=== PATIENT | female | born 1995 | race Caucasian/White ===

== ENCOUNTER 2016-07-26 17:34 | Emergency (ER) | payer BC ==
[2016-07-26 18:59] VITALS: BP 123/71
--- NOTE | 2016-07-26 19:23 | UC ---
Complaint Female HPI - HPI Summary HPI Summary: The patient comes in today for: 1. Right eye "goopy and painful": Onset: Today. Palliative/provocative: Nothing makes it better or worse. Quality: Burning, sore Region: Right eye. Severity: 6/10 Time: Constant. Associated symptoms: She states that she has had sinus problems for "a couple weeks." Vision: blurry. Previous treatment: 2. Onset: Dysuria: Palliative/provocative: Nothing makes her condition better or worse. Quality: Burning. Region: Severity: 0/10 during the dy. Time: Comes and goes Associated symptoms: Fevers: NOne. Previous treatment: None. * * - History Of Current Complaint Chief Complaint: UCGeneralIllness Stated Complaint: EYE COMPLAINT/URINARY COMPLAINT Time Seen by Provider: 07/26/16 19:06 Hx Last Menstrual Period: "spotting one or two days this Sunday/Sunday" - Allergies/Home Medications Allergies/Adverse Reactions: Allergies Allergy/AdvReac Type Severity Reaction Status Date / Time No Known Allergies Allergy Verified 07/26/16 18:45 Home Medications: Home Medications Control Med 1 tab DAILY 07/26/16 [History] PMH/Surg Hx/FS Hx/Imm Hx Previously Healthy: No - Family planning/(BCP) Endocrine History Of: Denies: Diabetes, Thyroid Disease, Hyperthyroidism, Hypothyroidism, Dyslipidemia Cardiovascular History Of: Denies: Cardiac Disorders, Hypertension, Pacemaker/ICD, Myocardial Infarction , Congestive Heart Failure, Atrial Fibrillation, Deep Vein Thrombosis, Bleeding Disorders Respiratory History Of: Denies: COPD, Asthma, Bronchitis, Pneumonia, Pulmonary Embolism GI/ History Of: Reports: Gastrointestinal Bleed - "I bleed when I poop." She has not been evaluated for this. Denies: Gastroesophageal Reflux, Ulcer, Gall Bladder Disease, Kidney Stones, Diverticulitis, Renal Disease, Urosepsis Neurological History Of: Reports: Migraine - She does not take every day medications. Will take sumitriptan. Denies: TIA, CVA, Dementia, Seizures Psychological History Of: Denies: Anxiety, Depression, Bipolar Disorder, Schizophrenia, Post Traumatic Stress Disorder Cancer History Of: Denies: Lung Cancer, Colorectal Cancer, Breast Cancer, Prostate Cancer, Cervical Cancer Other History Of: Negative For: HIV, Hepatitis B, Hepatitis C, Anticoagulant Therapy - Surgical History Surgical History: Yes Surgery Procedure, Year, and Place: Tonsils - Family History Known Family History: Positive: Hypertension Negative: Cardiac Disease - Social History Occupation: Student Alcohol Use: Occasionally Substance Use Type: None Smoking Status (MU): Never Smoked Tobacco - Immunization History Most Recent Influenza Vaccination: NONE Most Recent Tetanus Shot: UTD Review of Systems Constitutional: Negative Skin: Negative Eyes: Blurred Vision, Drainage, Eye Redness ENT: Negative Respiratory: Negative Cardiovascular: Negative Gastrointestinal: Negative Genitourinary: Dysuria, Frequency, Urgency All Other Systems Reviewed And Are Negative: Yes Physical Exam Triage Information Reviewed: Yes Appearance: Well-Appearing, No Pain Distress, Well-Nourished Vital Signs: Initial Vital Signs Temp 99.3 F 07/26/16 18:46 Pulse 89 07/26/16 18:46 Resp 18 07/26/16 18:46 BP 123/71 07/26/16 18:46 Pulse Ox 99 07/26/16 18:46 Vital Signs Reviewed: Yes Eyes: Positive: Conjunctiva Clear - On the left., Conjunctiva Inflamed - on the right, Discharge - On the right ENT: Positive: Hearing grossly normal. Negative: Pharyngeal erythema, Nasal congestion, Nasal drainage, TM bulging, TM dull, TM red, Tonsillar swelling, Tonsillar exudate Dental: Negative: Gross Decay/Caries @, Dental Fracture @ Neck: Positive: Supple, Nontender, No Lymphadenopathy. Negative: Nuchal Rigidity Respiratory: Positive: Lungs clear, No respiratory distress, No accessory muscle use. Negative: Crackles, Wheezing Cardiovascular: Positive: RRR, No Murmur Abdomen Description: Positive: Nontender, No Organomegaly, Soft. Negative: Distended, Guarding Musculoskeletal: Positive: Strength Intact, ROM Intact, No Edema Neurological: Positive: Alert, Muscle Tone Normal Psychological: Positive: Age Appropriate Behavior, Consolable Skin: Negative: rashes, breakdown Diagnostics - Laboratory Diagnostic Studies Completed/Ordered: Urine screen: Specific gravity: 1.025. WBC: (-). Nitrite: (-). Blood: (-). Protein: (-). Glucose: (-) Complaint Female Dx - Course Course Of Treatment: Patient told of her diagnosis (dysuria syndrome) and conjunctivitis and treatment options. - Differential Dx/Diagnosis Provider Diagnoses: Right bacterial conjunctivitis. Dysuria syndrome. Discharge - Discharge Plan Condition: Stable Disposition: HOME Patient Education Materials: Conjunctivitis (ED), Dysuria (ED) Referrals: Non Staff,Doctor [Primary Care Provider] - 3 Days (Please see your primary care provider, the [facility] or us after several days to see how well you are doing. If you get worse, please be seen sooner.)
== END 2016-07-26 20:01 | disposition home or self-care (01) ==
LOC: UCCORT 17:34
DX: H10.33 Unspecified acute conjunctivitis, bilateral (principal); R30.0 Dysuria; K92.2 Gastrointestinal hemorrhage, unspecified; G43.909 Migraine, unspecified, not intractable, without status migrainosus
CPT/HCPCS: 81003; 99212; G0463